=== PATIENT | female | born 1975 | race Caucasian/White ===

== ENCOUNTER 2016-12-17 21:27 | Emergency (ER) | payer OTHER ==
[2016-12-17 22:20] LABS: BASOPHIL % 0.8 % (0-2); PLATELET COUNT 397 x10^3mcL (130-400)
[2016-12-17 22:21] LABS: RED CELL DISTRIBUTION WIDTH 14.7 % (11.5-14.5)
[2016-12-17 22:34] LABS: CALCIUM 9.1 mg/dL (8.5-10.1); CARBON DIOXIDE 28.7 mmol/L (21-32); CHLORIDE SERUM 104 mmol/L (98-107); GFR1 > 60 mL/min; GLUCOSE SERUM 106 mg/dL (74-106); POTASSIUM SERUM 3.7 mmol/L (3.5-5.1); SODIUM SERUM 141 mmol/L (136-145)
[2016-12-17 22:39] LABS: ALBUMIN 3.5 g/dL (3.4-5.0); ALKALINE PHOSPHATASE 82 U/L (46-116); ALT/SGPT 20 U/L (14-59); AMYLASE 38 U/L (25-115); AST/SGOT 16 U/L (15-37); BILIRUBIN TOTAL 0.33 mg/dL (0.20-1.00); LIPASE 105 IU/L (73-393); TOTAL PROTEIN, SERUM 8.2 g/dL (6.4-8.2)
[2016-12-17 23:22] LABS: UA SPECIFIC GRAVITY >=1.030 (1.005-1.035); microscopic required? YES; urine erythrocyte 3+ (NEGATIVE)
[2016-12-18 03:12] VITALS: BP 128/91
== END 2016-12-18 03:12 | disposition home or self-care (01) ==
LOC: ED 21:27
PROVIDERS: Emergency Medicine
DX: R10.32 Left lower quadrant pain (principal)
CPT/HCPCS: J1170; Q0162

== ENCOUNTER 2016-12-20 13:50 | Emergency (ER) | payer OTHER ==
[~2016-12-20] VITALS: Ht 165.1 cm; Wt 130.7 kg
[2016-12-20 15:25] VITALS: BP 124/69
== END 2016-12-20 16:07 | disposition home or self-care (01) ==
LOC: ED 13:50
DX: N20.1 Calculus of ureter (principal); B34.9 Viral infection, unspecified; R03.0 Elevated blood-pressure reading, without diagnosis of hypertension; Z88.2 Allergy status to sulfonamides; Z88.8 Allergy status to other drugs, medicaments and biological substances; Z87.19 Personal history of other diseases of the digestive system
CPT/HCPCS: J3010; Q0162

== ENCOUNTER 2017-04-26 20:50 | Emergency (ER) | payer OTHER ==
[2017-04-26 23:02] VITALS: BP 130/65
== END 2017-04-26 23:02 | disposition home or self-care (01) ==
LOC: ED 20:50
DX: J01.90 Acute sinusitis, unspecified (principal); R11.2 Nausea with vomiting, unspecified; T37.8X5A Adverse effect of other specified systemic anti-infectives and antiparasitics, initial encounter; Y92.89 Other specified places as the place of occurrence of the external cause; Z88.2 Allergy status to sulfonamides; Z88.6 Allergy status to analgesic agent

== ENCOUNTER 2017-08-26 13:55 | Emergency (ER) | payer OTHER ==
[2017-08-26 16:19] LABS: BASOPHIL % 1.2 % (0-2); PLATELET COUNT 390 x10^3mcL (130-400)
[2017-08-26 16:33] LABS: ALBUMIN 3.7 g/dL (3.4-5.0); ALT/SGPT 24 U/L (14-59); AST/SGOT 16 U/L (15-37); CALCIUM 8.9 mg/dL (8.5-10.1); CARBON DIOXIDE 28.5 mmol/L (21-32); CHLORIDE SERUM 102 mmol/L (98-107); CHOLESTEROL 176 mg/dL (<200); CREATININE SERUM 0.9 mg/dL (0.6-1.0); GFR1 > 60 mL/min; GLUCOSE SERUM 94 mg/dL (74-106); MAGNESIUM 2.1 mg/dL (1.8-2.4); POTASSIUM SERUM 3.5 mmol/L (3.5-5.1); SODIUM SERUM 140 mmol/L (136-145); TOTAL PROTEIN, SERUM 8.5 g/dL (6.4-8.2)
[2017-08-26 17:35] LABS: ALKALINE PHOSPHATASE 75 U/L (46-116); BILIRUBIN TOTAL 0.3 mg/dL (0.20-1.00); T4(THYROXINE) 7.8 ug/dL (4.7-13.3)
[2017-08-26 17:36] LABS: HDL CHOLESTEROL 65 mg/dL (40-60)
[2017-08-26 18:34] LABS: AMPHETAMINE QUAL UR NONE DETECTED (NEG <=1000)
[2017-08-26 19:00] LABS: UA SPECIFIC GRAVITY 1.015 (1.005-1.035); microscopic required? YES; urine erythrocyte NEGATIVE (NEGATIVE)
[2017-08-26 19:49] VITALS: BP 148/79
== END 2017-08-26 19:49 | disposition home or self-care (01) ==
LOC: ED 13:55
PROVIDERS: Emergency Medicine
DX: R60.0 Localized edema (principal); E66.01 Morbid (severe) obesity due to excess calories; Z87.442 Personal history of urinary calculi; Z88.2 Allergy status to sulfonamides; M79.661 Pain in right lower leg; M79.662 Pain in left lower leg
CPT/HCPCS: 82962; 83880; J1940; Q0092